=== PATIENT | male | born 1995 | race Asian ===

== ENCOUNTER 2018-10-22 14:31 | Emergency (ER) | payer OTHER ==
[~2018-10-22] VITALS: Ht 172.7 cm; Wt 127.0 kg
--- NOTE | 2018-10-22 14:30 | Emergency Room Report ---
History of Present Illness General Source: Patient, EMS Present Illness HPI Patient is 23-year-old male brought in by EMS after increased altered level consciousness. Patient was reportedly at a museum and had ingested LSD per friend report. Patient was noted to have increased agitation as well as altered mental status.Patient was noted to speak Mandarin. Allergies: Coded Allergies: UNABLE TO ASSESS (Unverified , 10/22/18) aloc Patient History Past Medical History: see triage record Reviewed Nursing Documentation: PMH: Agreed; PSxH: Agreed Review of Systems All Other Systems: limited - Mental status. Physical Exam Sp02 EP Interpretation: reviewed, normal General Appearance: normal inspection, obese Head: atraumatic Eyes: bilateral eye other - pupils dilated ENT: normal ENT inspection, hearing grossly normal, normal voice Neck: normal inspection, full range of motion, supple, no bony tend Respiratory: normal inspection, lungs clear, normal breath sounds, no respiratory distress, no retraction, no wheezing Cardiovascular #1: no edema, tachycardia Gastrointestinal: normal inspection, normal bowel sounds, non tender, soft, no guarding, no hernia Genitourinary: no CVA tenderness Musculoskeletal: normal inspection, back normal, normal range of motion Neurologic: normal inspection, alert, responsive, speech normal Psychiatric: normal inspection, judgement/insight normal, mood/affect normal Skin: normal inspection, normal color, no rash Procedures Critical Care Time Critical Care Time Patient had a critical medical condition which untreated could potentially result in life or limb threatening injury. Total critical care time excluding procedures approximately 45 minutes. Medical Decision Making Diagnostic Impression: Primary Impression: Substance abuse ER Course Patient presented for altered mental status. Differential diagnosis included but was not limited to ischemic stroke, subarachnoid hemorrhage, hypoglycemia, spinal cord injury, neurodegenerative disorder, urinary tract infection, hypoxemia. Because of complexity of patient's case laboratory testing and imaging studies were ordered. Patient was noted to be agitated and tachycardic with a rapid heart rate.Patient was given Ativan and started on IV fluids. Poison control was contacted due to patient's ingestion of LSD. Patient is noted to be initially febrile and tachycardic with a heart rate approximately 170s. Patient was started on IV fluids. He was given Tylenol. Patient was given multiple medications due to market agitation. Patient was noted to have improvement in his agitation subsequently. Patient was started on IV fluids and was noted to have improvement in his lactic acidosis. Patient was noted to be urinating normally. At the time of discharge patient was awake alert and oriented x3. He was able to ambulate without assistance. Patient was advised to stop using drugs. Labs Test 10/22/18 14:30 10/22/18 15:55 White Blood Count 12.3 K/UL (4.8-10.8) Red Blood Count 5.33 M/UL (4.70-6.10) Hemoglobin 15.6 G/DL (14.2-18.0) Hematocrit 46.7 % (42.0-52.0) Mean Corpuscular Volume 88 FL (80-99) Mean Corpuscular Hemoglobin 29.3 PG (27.0-31.0) Mean Corpuscular Hemoglobin Concent 33.5 G/DL (32.0-36.0) Red Cell Distribution Width 11.3 % (11.6-14.8) Platelet Count 501 K/UL (150-450) Mean Platelet Volume 5.7 FL (6.5-10.1) Neutrophils (%) (Auto) 67.2 % (45.0-75.0) Lymphocytes (%) (Auto) 27.5 % (20.0-45.0) Monocytes (%) (Auto) 3.4 % (1.0-10.0) Eosinophils (%) (Auto) 0.7 % (0.0-3.0) Basophils (%) (Auto) 1.3 % (0.0-2.0) Urine Color Pale yellow Urine Appearance Clear Urine pH 5 (4.5-8.0) Urine Specific [place] 1.015 (1.005-1.035) Urine Protein 2+ (NEGATIVE) Urine Glucose (UA) Negative (NEGATIVE) Urine Ketones Negative (NEGATIVE) Urine Blood 4+ (NEGATIVE) Urine Nitrite Negative (NEGATIVE) Urine Bilirubin Negative (NEGATIVE) Urine Urobilinogen Normal MG/DL (0.0-1.0) Urine Leukocyte Esterase Negative (NEGATIVE) Urine RBC 10-15 /HPF (0 - 0) Urine WBC 0 /HPF (0 - 0) Urine Squamous Epithelial Cells None /LPF (NONE/OCC) Urine Bacteria None /HPF (NONE) Sodium Level 138 MMOL/L (136-145) Potassium Level 3.8 MMOL/L (3.5-5.1) Chloride Level 99 MMOL/L (98-107) Carbon Dioxide Level 16 MMOL/L (21-32) Anion Gap 24 mmol/L (5-15) Blood Urea Nitrogen 14 mg/dL (7-18) Creatinine 2.0 MG/DL (0.55-1.30) Estimat Glomerular Filtration Rate 42.0 mL/min (>60) Glucose Level 248 MG/DL (74-106) Calcium Level 10.2 MG/DL (8.5-10.1) Total Bilirubin 0.5 MG/DL (0.2-1.0) Aspartate Amino Transf (AST/SGOT) 26 U/L (15-37) Alanine Aminotransferase (ALT/SGPT) 49 U/L (12-78) Alkaline Phosphatase 61 U/L (46-116) Total Creatine Kinase 151 U/L (26-308) Troponin I 0.009 ng/mL (0.000-0.056) Total Protein 9.5 G/DL (6.4-8.2) Albumin 5.2 G/DL (3.4-5.0) Globulin 4.3 g/dL Albumin/Globulin Ratio 1.2 (1.0-2.7) Thyroid Stimulating Hormone (TSH) 1.375 uiU/mL (0.358-3.740) Salicylates Level 1.5 ug/mL (2.8-20) Urine Opiates Screen Negative (NEGATIVE) Acetaminophen Level < 2 MCG/ML (10-30) Urine Barbiturates Screen Negative (NEGATIVE) Phencyclidine (PCP) Screen Negative (NEGATIVE) Urine Amphetamines Screen Negative (NEGATIVE) Urine Benzodiazepines Screen Negative (NEGATIVE) Urine Cocaine Screen Negative (NEGATIVE) Urine Marijuana (THC) Screen Positive (NEGATIVE) Serum Alcohol < 3 mg/dL Lactic Acid Level 3.60 mmol/L (0.66-2.22) EKG Diagnostic Results Rate: tachycardiac - 167 Rhythm: NSR ST Segments: no acute changes Status: improved Disposition: HOME, SELF-CARE Condition: Stable Shaheed Elliott MD Oct 22, 2018 14:30
[2018-10-22 14:44] VITALS: BP 162/114
[2018-10-22] MEDS ORDERED: LORazepam Inj 2mg/ml 1ml IV ONE (14:45)
[2018-10-22] MEDS ORDERED: Acetaminophen 650 MG SUPP RECTAL ONE (14:45)
[2018-10-22] MEDS ORDERED: Haloperidol 5mg/ml Inj IM ONE (14:45)
[2018-10-22 14:50] LABS: APPEARANCE,URINE CLEAR; BASOPHILS % (AUTO) 1.3 % (0.0-2.0); BILIRUBIN, URINE NEGATIVE (NEGATIVE); COLOR,URINE PALE YELLOW; EOSINOPHILS % (AUTO) 0.7 % (0.0-3.0); GLUCOSE, URINE (UA) NEGATIVE (NEGATIVE); HEMATOCRIT 46.7 % (42.0-52.0); HEMOGLOBIN 15.6 G/DL (14.2-18.0); KETONES,URINE NEGATIVE (NEGATIVE); LEUKOCYTE ESTERASE ,URINE NEGATIVE (NEGATIVE); LYMPHOCYTES % (AUTO) 27.5 % (20.0-45.0); MEAN CORPUSCULAR VOLUME 88 FL (80-99); MONOCYTES % (AUTO) 3.4 % (1.0-10.0); NEUTROPHILS % (AUTO) 67.2 % (45.0-75.0); NITRITE,URINE NEGATIVE (NEGATIVE); PH,URINE 5 (4.5-8.0); PLATELET COUNT 501 K/UL (150-450); PROTEIN,URINE 2+ (NEGATIVE); RED BLOOD COUNT 5.33 M/UL (4.70-6.10); RED CELL DISTRIBUTION WIDTH 11.3 % (11.6-14.8); UROBILINOGEN,URINE NORMAL MG/DL (0.0-1.0); WHITE BLOOD COUNT 12.3 K/UL (4.8-10.8)
[2018-10-22 14:57] LABS: ANION GAP 24 mmol/L (5-15); BLOOD UREA NITROGEN 14 mg/dL (7-18); CALCIUM 10.2 MG/DL (8.5-10.1); CARBON DIOXIDE 16 MMOL/L (21-32); CHLORIDE 99 MMOL/L (98-107); POTASSIUM 3.8 MMOL/L (3.5-5.1); SODIUM 138 MMOL/L (136-145)
[2018-10-22 15:11] LABS: ALANINE AMINOTRANSFERASE 49 U/L (12-78); ALBUMIN 5.2 G/DL (3.4-5.0); ALBUMIN/GLOBULIN RATIO 1.2 (1.0-2.7); ALKALINE PHOSPHATASE 61 U/L (46-116); ASPARTATE AMINO TRANSFERASE 26 U/L (15-37); BILIRUBIN,TOTAL 0.5 MG/DL (0.2-1.0)
[2018-10-22 15:31] LABS: CREATINE KINASE 151 U/L (26-308)
[2018-10-22 16:54] VITALS: BP 134/85
[2018-10-22 19:57] VITALS: BP 145/72
[2018-10-22 19:59] VITALS: BP 145/72
== END 2018-10-22 20:00 | disposition home or self-care (01) ==
LOC: EDBD 14:31 → EMR 14:54
DX: F16.10 Hallucinogen abuse, uncomplicated (principal); R41.82 Altered mental status, unspecified
CPT/HCPCS: 36415; 80053; 80307; 81003; 82550; 83605; 84443; 84484; 85025; 96365; 96372; 96375; 99284; G0480; J1630; 80329